=== PATIENT | male | born 1960 | race Caucasian/White ===

== ENCOUNTER → 2021-02-12 15:28 | Outpatient (CLI) | payer OTHER, SELFPAY ==
[2021-02-12] MEDS: COVID-19 VACC, Ad26(JANSSEN)/PF 0.5 ML IM (15:36)
== END ==
PROVIDERS: Visit Provider Internal Medicine
DX: Z23 Encounter for immunization (principal)
CPT/HCPCS: 0031A; 91303

== ENCOUNTER → 2022-06-06 13:44 | Outpatient (CLI) | payer OTHER, SELFPAY ==
--- NOTE | 2022-06-06 13:50 | DI.RAD.S_ITS ---
PROCEDURE: XR CERVICAL SPINE 2V OR 3V INDICATIONS: BACK PAIN TECHNIQUE: 3 view(s) of the cervical spine were acquired. COMPARISON: None. FINDINGS: Bones: Moderate spondylosis, particularly of the lower cervical spine. No spondylolisthesis. There is straightening of the normal cervical lordosis. Leftward cervical thoracic spinal curvature. Soft tissues: Carotid bulb calcifications. No prevertebral swelling. IMPRESSION: Moderate spondylosis. Dictated by: Rolando Leonardo M.D. on 06/06/2022 at 17:27 Approved by: Rolando Leonardo M.D. on 06/06/2022 at 17:28
--- NOTE | 2022-06-06 13:50 | DI.RAD.S_ITS ---
PROCEDURE: XR LUMBAR SPINE 2-3V INDICATIONS: BACK PAIN TECHNIQUE: Three views of the lumbar spine were acquired. COMPARISON: None. FINDINGS: Bones: There are 5 lumbar type vertebral bodies. L3 on L4 4 mm of retrolisthesis. L4 on L5 8 mm of anterolisthesis. Mild to moderate overall spondylosis, with disc space height loss and facet arthropathy primarily. There is also osteophyte formation. Soft tissues: Overlying bowel gas pattern is normal. No suspicious soft tissue calcifications. IMPRESSION: [id number] spondylosis. Multilevel spondylolisthesis as above. Dictated by: Rolando Leonardo M.D. on 06/06/2022 at 17:28 Approved by: Rolando Leonardo M.D. on 06/06/2022 at 17:29
--- NOTE | 2022-06-06 13:50 | DI.RAD.S_ITS ---
PROCEDURE: XR THORACIC SPINE 2V INDICATIONS: BACK PAIN TECHNIQUE: 3 views of the thoracic spine were acquired. COMPARISON: None. FINDINGS: Bones: There are 12 pairs of ribs. Slightly exaggerated thoracic kyphosis. Endplate deformities and minimal height loss, favored to be related to degenerative disc disease, age-indeterminate. Mild multilevel spondylosis. No spondylolisthesis. Slight rightward spinal curvature in the midthoracic spine. Soft tissues: No paravertebral stripe thickening. IMPRESSION: Mild thoracic spondylosis. Slight wedging and endplate deformities of some thoracic vertebral bodies, age indeterminate, probably degenerative. Dictated by: Rolando Leonardo M.D. on 06/06/2022 at 17:30 Approved by: Rolando Leonardo M.D. on 06/06/2022 at 17:31
[2022-06-06 14:43] LABS: Hemoglobin A1C% w Est Avg Glu 5.1 % (4.0-6.0)
[2022-06-06 14:54] LABS: Alanine Aminotransferase 34 IU/L (<50); Albumin 4.3 g/dL (3.5-5.0); Albumin Globulin Ratio 1.3 (1.0-2.8); Alkaline Phosphatase 116 U/L (38-126); Aspartate Aminotransferase 61 IU/L (17-59); BUN Creatinine Ratio 15.3 (6-22); Bilirubin Total 0.8 mg/dL (0.2-1.3); Blood Urea Nitrogen 9 mg/dL (9-20); Calcium 9.1 mg/dL (8.4-10.2); Carbon Dioxide 23 mmol/L (22-32); Chloride 98 mmol/L (98-107); Cholesterol 190 mg/dL (140-199); Estimated Glomerular Filt Rate > 60 mL/min (>60); Globulin 3.3 g/dL (1.7-4.1); Glucose 84 mg/dL (80-110); HDL Cholesterol 98 mg/dL (40-60); HEMOLYSIS < 15 (0-50); LDL Cholesterol Calculated 77 mg/dL (<100); Potassium 3.7 mmol/L (3.4-5.1); Sodium 133 mmol/L (137-145); Total Protein 7.6 g/dL (6.3-8.2); Triglycerides 75 mg/dL (35-150)
[2022-06-06 14:59] LABS: Add Manual Diff / Slide Review NO; Basophils Absolute Auto 0 /uL (0-100); Basophils Percent Auto 0.7 % (0-2); Eosinophils Absolute Auto 100 /uL (0-450); Eosinophils Percent Auto 1.7 % (2-4); Hematocrit 39.4 % (41-53); Hemoglobin 13.1 g/dL (13.5-17.5); Lymphocytes Absolute Auto 1500 /uL (1100-4500); Lymphocytes Percent Auto 21.9 % (25-40); Mean Corpuscular HGB Conc 33.2 % (30-36); Mean Corpuscular Hemoglobin 32.5 PG (26-34); Mean Corpuscular Volume 97.9 fL (80-100); Monocytes Absolute Auto 800 /uL (0-900); Monocytes Percent Auto 12.6 % (3-14); Neutrophils Absolute Auto 4200 /uL (1500-7000); Neutrophils Percent Auto 63.1 % (50-75); Platelet Count 209 X10^3/uL (150-400); Red Blood Cell Count 4.02 X10^6/uL (4.5-5.9); Red Cell Distribution Width 13.7 % (11.6-14.8); White Blood Cell Count 6.7 X10^3/uL (4.5-11.0)
[2022-06-06 15:59] LABS: Folate 8.7 ng/mL (2.76-20.0); Vitamin B12 257 pg/mL (239-931)
[2022-06-06 16:55] LABS: Vitamin D 25 Hydroxy (D3) 15.6 ng/mL (30.0-100.0)
== END ==
PROVIDERS: PCP Family Medicine; Referring Provider Family Medicine; Visit Provider Family Medicine
DX: M54.6 Pain in thoracic spine (principal); Z87.828 Personal history of other (healed) physical injury and trauma; R03.0 Elevated blood-pressure reading, without diagnosis of hypertension; R00.0 Tachycardia, unspecified; R19.5 Other fecal abnormalities; Z13.1 Encounter for screening for diabetes mellitus; Z72.89 Other problems related to lifestyle; E56.9 Vitamin deficiency, unspecified; Z13.220 Encounter for screening for lipoid disorders
CPT/HCPCS: 36415; 72040; 72072; 72100; 80053; 80061; 82306; 82607; 82746; 83036; 85025